=== PATIENT | male | born 1995 | race Caucasian/White ===

== ENCOUNTER 2017-03-19 20:37 | Emergency (ER) | payer OTHER ==
[~2017-03-19] VITALS: Ht 177.8 cm; Wt 90.9 kg
[2017-03-19 20:39] VITALS: TEMP 98
[2017-03-19] MEDS ORDERED: PRILOSEC 20MG20 MG PO (21:45)
[2017-03-19 22:39] VITALS: BP 130/69; PULSE 54
== END 2017-03-19 22:39 | disposition home or self-care (01) ==
LOC: COL.ER 20:37
DX: R07.9 Chest pain, unspecified (principal)
CPT/HCPCS: J8540